=== PATIENT | male | born 1975 | race Caucasian/White ===

== ENCOUNTER 2020-01-07 17:20 | Emergency (ER) | payer SELFPAY ==
[2020-01-07 17:22] VITALS: BP 126/87; PULSE 69; RESP 16; TEMP 36.7; O2SAT 98; BMI 25.5
--- NOTE | 2020-01-07 17:23 | NURSING ---
NO OLD EKGS
--- NOTE | 2020-01-07 17:40 | EKG12_ITS ---
Test Reason : CP Blood Pressure : / mmHG Vent. Rate : 063 BPM Atrial Rate : 063 BPM P-R Int : 144 ms QRS Dur : 092 ms QT Int : 410 ms P-R-T Axes : 069 060 039 degrees QTc Int : 419 ms Normal sinus rhythm with sinus arrhythmia Normal ECG Confirmed by ANNAMARIA MONTOYA, OSCAR ([id number]), city editor WENDY COURTNEY ([id number]) on 01/11/2020 1:08:50 PM Referred By: Confirmed By:OSCAR IYN MD
--- NOTE | 2020-01-07 17:43 | ED.VIS.GEN ---
History of Present Illness Chief Complaint: Chest Pain Informant: Patient Narrative: Patient is a 44-year-old male with no previous past medical history who presents to the emergency department for left-sided chest pain. This started acutely 1 hour prior to arrival in the ED. He states that he jumped up into his truck when the symptoms started. He has never had this happen before in the past. It did radiate to his back on that side. Currently rates the pain as a 7 out of 10. He did take a baby aspirin prior to arrival which he believes is helping. No associated shortness of breath. Denies any recent illnesses including any cough, cold, congestion. No fevers or chills. Denies any leg swelling or calf pain. No history of DVT/PE or CT. He does not know aggravating or relieving factors now. He denies any headache or vision changes. No abdominal pain. No nausea/vomiting. He is a current everyday smoker. Denies any drug use. Past Medical History - Allergies and Home Meds Allergies/Adverse Reactions: Allergies No Known Allergies Allergy (Verified 01/07/20 17:21) Primary Care Physician: Yuval Duff NP, GAS PUMP ATTENDANT-C [Primary Care Provider] - 2 Days Prior records reviewed: Yes Past Medical History: None Surgical History: no surgical history Smoking Status: Current every day smoker Alcohol: None Drugs: None Review of Systems All systems negative except as indicated General: Denies: Chills, Fever, Sweats Eyes: Denies: Visual changes - bilaterally, Diplopia ENT: Denies: Rhinorrhea, Sore throat Cardiovascular: Reports: Chest pain. Denies: Palpitations Respiratory: Denies: Dyspnea, Cough, Dyspnea on exertion Gastrointestinal: Denies: Abdominal pain, Nausea, Vomiting, Diarrhea Musculoskeletal: Denies: Back pain, Extremity Pain Skin: Denies: Rash, Wounds Neurological: Denies: Headache, Weakness, Numbness Physical Exam Vital Signs/Narrative: Vital Signs Temp Pulse Resp BP Pulse Ox 01/07/20 17:22 98.1 F 69 16 126/87 H 98 Inital Vital Signs reviewed: Yes General: Well nourished, Well developed, No Acute Distress Head: Normocephalic, Atraumatic Eyes: Perrl, EOMI ENT: Moist mucous membranes, No rhinorrhea Neck: Supple, Nontender Cardiovascular: Regular rate, Regular rhythm, No murmurs, - - 2+ radial pulses bilateral Respiratory: No distress, CTA bilaterally, Chest nontender Abdomen: Soft, Nontender, Nondistended, Normal bowel sounds Back: Nontender, Normal Inspection Extremities: Nontender, No edema. Negative for: Edema, Calf Tenderness Skin: Normal color, No rash Neurological: Alert, Oriented x3, Cranial nerves II-XII grossly intact, Normal Strength, Normal Sensation Psychological: Normal affect, Normal Mood Diagnostic/Tx/Re-eval - EKG Initial EKG Interpretation: - - Rate of 63 bpm and normal sinus rhythm. Normal intervals. Normal axis. No ST elevations or depressions appreciated. No T wave abnormalities. - Medical Decision Making Patient presents to the emergency department for acute onset chest pain. He states it is starting to alleviate now. Upon arrival to the ED vital signs within normal limits. He is not hypoxic. Low concern for PE. EKG, chest x-ray basic lab work being obtained. Patient has a low heart score. Initial troponin and repeat troponins are negative. He does feel comfortable going home at this time. Patient discharged home in stable condition. He is to follow-up with his PCP. Warning signs and symptoms which to return to the ED are reviewed with him. He understands and is agreeable with this plan. ED Disposition - Plan for ED Patient: Disposition: Home or Assisted Living Diagnosis: Chest pain Instructions: ED Chest Pain Noncardiac Ch Referrals: Yuval Duff NP, GAS PUMP ATTENDANT-C [Primary Care Provider] - 2 Days
[2020-01-07 17:53] VITALS: O2SAT 98
--- NOTE | 2020-01-07 17:55 | RAD_ITS ---
STUDY: X-RAY CHEST REASON FOR EXAM: Male, 44 years old. CHEST PAIN TECHNIQUE: PA and lateral COMPARISON: None. FINDINGS: Lungs are mildly hyperinflated but clear.. There is no demonstrated pleural abnormality. Normal size heart. Normal mediastinum and carmelina. Normal visualized pulmonary arteries. Normal visualized aortic arch and descending thoracic aorta. Normal visualized thoracic spine. Normal visualized ribs, clavicles, and shoulders. There is no demonstrated abnormality of the visualized soft tissue structures of the upper abdomen. RAD/Chest PA and Lateral IMPRESSION: No acute cardiopulmonary pathology Electronically Signed: Baldo Slater MD at 18:19 EDT , Service support ,
[2020-01-07 18:05] LABS: Basophil# 0.06 X10^3/uL; Basophil% 0.6 % (0-1); Eosinophil# 0.49 X10^3/uL; Eosinophils% 5.2 % (0-5); Hematocrit 41.8 % (40-54); Hemoglobin 13.9 g/dL (13.0-16.5); Lymphocyte % 22.3 % (19-41); Mean Corp Hgb Conc 33.3 g/dL (32-36); Mean Corpuscular Hgb 29.7 pg (27.0-32.0); Mean Corpuscular Volume 89.3 fL (80-94); Mean Platelet Vol. 10.5 fl (6.2-12.0); Monocyte# 0.75 X10^3/uL; NRBC Flagged by Analyzer 0 % (0-5); Neutrophil # 5.98 X10^3/uL (2.7-7.7); Neutrophil % 63.5 % (47-70); Platelet Count 256 K/mm3 (150-450); RBC Distribution Width CV 13.8 % (11.6-14.6); RBC Distribution Width SD 44.7 fl (35.1-43.9); Red Blood Count 4.68 M/mm3 (4.6-6.2); White Blood Count 9.4 K/mm3 (4.4-11.0)
[2020-01-07 18:18] VITALS: BP 125/94; PULSE 53; RESP 15; O2SAT 96
[2020-01-07 18:25] LABS: Anion Gap 4 (5-15); BUN 14 mg/dL (7-18); BUN/Creat Ratio 14.4 RATIO (10-20); Chloride 108 mmol/L (98-107); Creatinine, Serum 0.97 mg/dL (0.70-1.30); EST Glomerular Filtration Rate 89 mL/min (>60); Est Glom Filt Rate - Afr Amer 108 mL/min (>60); Estimated Creatinine Clearance 106.67 ml/min; Glucose 100 mg/dL (74-106); Potassium 3.7 mmol/L (3.5-5.1); Sodium Level 142 mmol/L (136-145)
[2020-01-07 19:07] VITALS: BP 117/89; PULSE 55; RESP 16; O2SAT 96
--- NOTE | 2020-01-07 19:14 | CT_ITS ---
STUDY: CTA CHEST REASON FOR EXAM: Male, 44 years old. LEFT CHEST PAIN RADIATES TO BACK, NO OTHER HISTORY RADIATION DOSAGE (If Supplied By Facility): CTDIvol = ( 14.00 ) mGy, DLP = ( 341.00 ) mGycm TECHNIQUE: The examination was performed with the intravenous administration of IV 100mL Isovue-370. Post-processing of the angiographic images was performed, with multiplanar reformation and 3D reconstruction. Individualized dose optimization techniques were used for this CT. COMPARISON: PA and lateral chest 01/07/2020 FINDINGS: Normal enhancement of the main pulmonary artery and right and left pulmonary arteries. Normal enhancement of the bilateral peripheral pulmonary arteries. There is no demonstrated pulmonary embolism. Normal thoracic aorta and visualized great vessels. There is no demonstrated aortic dissection. Normal heart and pericardium. Normal mediastinum. Normal hilar regions. Normal visualized trachea and bronchi. The lungs are well expanded. There is minor atelectasis within the dependent portion lungs. There is no focal infiltration or pulmonary nodule Normal pleura. Normal chest wall structures. Dorsal spine demonstrates mild spondylosis Normal visualized upper abdomen. CT/CTA Chest W/WO Contrast IMPRESSION: Minor atelectasis within the dependent portion lungs.. No acute abnormality. No evidence for pulmonary embolus aortic aneurysm periaortic leak or dissection Electronically Signed: Baldo Slater MD at 19:50 EDT , Service support ,
[2020-01-07 20:42] VITALS: BP 125/87; PULSE 51; RESP 16; O2SAT 98
[2020-01-07 21:26] VITALS: BP 126/102; PULSE 54; RESP 17; O2SAT 98
== END 2020-01-07 21:27 | disposition home or self-care (01) ==
PROVIDERS: Emergency Provider Emergency Medicine; PCP Nurse Practitioner Family
DX: R07.9 Chest pain, unspecified (principal); F17.200 Nicotine dependence, unspecified, uncomplicated
CPT/HCPCS: 71046; 71275; 80048; 84484; 85025; 93005; 99284; Q9967; A4216

== ENCOUNTER 2022-08-15 05:21 | Emergency (ER) | payer SELFPAY ==
[2022-08-15 05:23] VITALS: BP 130/92; PULSE 69; RESP 17; TEMP 36.8; O2SAT 96; BMI 24.9
[2022-08-15] MEDS: Ondansetron 4 MG/2 ML Vial IV (06:33)
[2022-08-15] MEDS: Morphine 4 MG/ML Syringe IV (06:33)
[2022-08-15 06:47] LABS: Absolute Lymphocyte Count 2.13 X10^3/uL (0.83-4.51); Absolute Neutrophil Count 6.9 X10^3/uL (2.0-7.7); Basophil# 0.06 X10^3/uL; Basophil% 0.6 % (0-1); Eosinophil# 0.65 X10^3/uL; Eosinophils% 6.1 % (0-5); Hematocrit 44.5 % (40-54); Hemoglobin 14.7 g/dL (13.0-16.5); Lymphocyte # 2.13 X10^3/ul (0.83-4.51); Lymphocyte % 19.9 % (19-41); Mean Corpuscular Hgb 29.9 pg (27.0-32.0); Mean Corpuscular Volume 90.4 fL (80-94); Mean Platelet Vol. 10.5 fl (6.2-12.0); Monocyte# 0.89 X10^3/uL; Monocyte% 8.3 % (0-10); NRBC Flagged by Analyzer 0 % (0-5); Neutrophil # 6.94 X10^3/uL (2.7-7.7); Neutrophil % 64.5 % (47-70); Platelet Count 228 K/mm3 (150-450); RBC Distribution Width CV 13.8 % (11.6-14.6); Red Blood Count 4.92 M/mm3 (4.6-6.2); White Blood Count 10.7 K/mm3 (4.4-11.0)
[2022-08-15 07:04] LABS: Anion Gap 3 (5-15); BUN 15 mg/dL (7-18); BUN/Creat Ratio 16.8 RATIO (10-20); Calcium,Total 9.2 mg/dL (8.5-10.1); Chloride 110 mmol/L (98-107); Creatinine, Serum 0.89 mg/dL (0.70-1.30); EST Glomerular Filtration Rate 97 mL/min (>60); Est Glom Filt Rate - Afr Amer 117 mL/min (>60); Estimated Creatinine Clearance 112.62 ml/min; Glucose 108 mg/dL (74-106); Potassium 3.7 mmol/L (3.5-5.1); Sodium Level 139 mmol/L (136-145)
[2022-08-15 07:10] LABS: Lactic Acid 1.1 mmol/L (0.4-1.9)
--- NOTE | 2022-08-15 07:27 | EX.ED.DYSGE1 ---
HPI History of Present Illness Chief Complaint: Abscess Narrative Narrative: Patient presents with a buttock abscess for past few days. No fevers chills. If years ago he had a similar abscess and was drained. No pain internally. [facility] Medical History Diverticula of colon Perianal abscess Home Medications oxycodone-acetaminophen 5 mg-325 mg tablet (Percocet) 1 tab PO Q6H PRN pain 3 days #12 tabs 08/15/22 [Rx Last Taken Unknown] sulfamethoxazole 800 mg-trimethoprim 160 mg tablet (Bactrim DS) 1 tab PO BID #20 tabs 08/15/22 [Rx Last Taken Unknown] Allergy/AdvReac Type Severity Reaction Status Date / Time No Known Allergies Allergy Verified 08/15/22 05:27 Social History Smoking Status: Current every day smoker tobacco type: cigarettes ROS ROS ED ROS Narrative Past medical history: Reviewed Medications: Reviewed Social history: Noncontributory Review of systems: All systems negative except as indicated General: No fever Respiratory: No shortness of breath or cough Gastrointestinal: No abdominal pain, nausea vomiting or diarrhea Rectal: Re buttock pain as in HPI Musculoskeletal: Denies myalgias no difficulty with ambulation Hematologic: No easy bleeding or easy bruising EXAM Physical Exam Narrative Exam Narrative: Physical exam General: Well nourished, Well developed, No Acute Distress Cardiovascular: Regular rate, Regular rhythm Respiratory: No distress, CTA bilaterally Abdomen: Soft, Nontender, Nondistended Rectal exam: Patient has a 3 cm abscess just inferior to the rectum. Digital rectal exam does not show any pain or mass or fullness in the rectum. The abscess is about 2 cm away from the actual rectum. Back: Nontender, Normal Inspection. Negative for: CVA tenderness Extremities: Nontender, No edema Skin: Normal color, very slight surrounding cellulitis Const Vital Signs: 08/15/22 05:23 Temperature 98.2 F Temperature Source Temporal Pulse Rate 69 Respiratory Rate 17 Blood Pressure 130/92 H Blood Pressure Mean 104 Pulse Ox 96 Oxygen Delivery Method Room Air MDM MDM MDM Narrative Medical decision making narrative: Abscess was drained, CBC CMP interpreted by me is unremarkable patient has a normal lactic acid there is no evidence of sepsis. He received IV antibiotics and he will be discharged with oral antibiotics and analgesics for home. Lab Data Labs: Laboratory Results - last 24 hr 08/15/22 08/15/22 08/15/22 06:38 06:38 06:38 WBC 10.7 RBC 4.92 Hgb 14.7 Hct 44.5 MCV 90.4 MCH 29.9 MCHC 33.0 RDW Std Deviation 46.0 H RDW Coeff of Estella 13.8 Plt Count 228 MPV 10.5 Immature Gran % (Auto) 0.600 Neut % (Auto) 64.5 Lymph % (Auto) 19.9 [place] % (Auto) 8.3 Eos % (Auto) 6.1 H Baso % (Auto) 0.6 Absolute Neuts (auto) 6.9 Absolute Lymphs (auto) 2.13 Nucleated RBC % 0 Sodium 139 Potassium 3.7 Chloride 110 H Carbon Dioxide 26.0 Anion Gap 3 L BUN 15 Creatinine 0.89 Estim Creat Clear Calc 112.62 Est GFR (MDRD) Af Amer 117 Est GFR (MDRD) Non-Af 97 BUN/Creatinine Ratio 16.8 Glucose 108 H Lactic Acid 1.1 Calcium 9.2 Procedures Other Procedures Procedure(s): Incision and drainage Verbal consent 1% lidocaine, prior to this he received IV morphine I used a #11 blade to make an incision and then I ellipsed it with scissors Copious amounts of foul-smelling pus were expectorated. I broke all loculations I irrigated with normal saline Patient tolerated procedure well. Discharge Plan Triage Chief Complaint: Abscess ED Provider: Hima Egan Dx/Rx/DC Orders Clinical Impression: Cellulitis Instructions: ED Abscess Incision And Drainage Prescriptions: New sulfamethoxazole-trimethoprim [Bactrim DS] 800-160 mg tablet 1 tab PO BID Qty: 20 0RF oxycodone-acetaminophen [Percocet] 5-325 mg tablet 1 tab PO Q6H PRN (Reason: pain) 3 Days Qty: 12 0RF Stand Alone Forms: ED Work / School Excuse Primary Care Provider: Yuval Duff NP Referrals: Yuval Duff NP, RADIOLOGY PRACTITIONER ASSISTANT-C [Primary Care Provider] - 3-5 Days Disposition Disposition: Home, Self Care
[2022-08-15] MEDS: Lidocaine 2% /Epi 1:100 (20ml) 20 ML VIAL INFILT (07:38)
[2022-08-15 07:40] VITALS: BP 121/68; PULSE 61; RESP 15; TEMP 36.4; O2SAT 99
== END 2022-08-15 07:41 | disposition home or self-care (01) ==
PROVIDERS: Emergency Medicine; Emergency Provider Emergency Medicine; PCP Nurse Practitioner Family; Visit Provider Emergency Medicine
DX: L03.317 Cellulitis of buttock (principal); F17.210 Nicotine dependence, cigarettes, uncomplicated
CPT/HCPCS: 80048; 83605; 85025; 96365; 96375; 99283; A4216; J2405